=== PATIENT | female | born 1965 | race Caucasian/White ===

== ENCOUNTER 2018-11-20 00:04 | Observation (INO) | payer OTHER, SELFPAY ==
[2018-11-19 23:49] VITALS: PULSE 96; BMI 38.6
[2018-11-20] VITALS (9 sets, daily range): BP systolic 119–151; BP diastolic 66–83; PULSE 63–82; RESP 16–19; TEMP 36.6–37.1; O2SAT 94–97
--- NOTE | 2018-11-20 00:04 | EKG12_ITS ---
Test Reason : PREOP Blood Pressure : / mmHG Vent. Rate : 075 BPM Atrial Rate : 075 BPM P-R Int : 154 ms QRS Dur : 090 ms QT Int : 406 ms P-R-T Axes : 064 027 030 degrees QTc Int : 453 ms Normal sinus rhythm Normal ECG Confirmed by KAROLYN EDGAR, TERRI ([id number]), supervising editor trailer RAVIN SAUER ([id number]) on 11/24/2018 11:00:40 AM Referred By: Clinton Vieira Confirmed By:TERRI PARR MD
--- NOTE | 2018-11-20 00:04 | PCM.HP.STD ---
Problem List (1) Chest pain Status: Acute History of Present Illness Date of Admission: 11/19/18 Chief Complaint: chest pain Patient was seen before midnight of 11/20/2018. She was seen at about 2350 on 11/19/2018. The patient is a 52 year old F with a significant history of hyperlipidemia; tobacco abuse; obesity who was transferred from [place] emergency department. Patient presented to [facility] because of persistent nonradiating episodic substernal chest pain that she described as a tightness and heaviness. Her chest pain started when she was gardening. Chest pain relieved with rest. Upon resuming gardening her chest pain returned only to subside after rest. Associated with her symptoms is near syncope; palpitations shortness of breath and diaphoresis Her chest pain occurred few hours before presentation to [place] emergency department. At [place] emergency department patient still have some heaviness which resolved with nitroglycerin. However patient reported lightheadedness; near syncope as well as hypotension after receiving nitroglycerin. Troponin x2 at [facility] was unremarkable. Chest x-ray and EKG was unremarkable. Because stress test is not routinely done at [facility] patient was transferred to our hospital. Past Medical History Medical History: Medical History (Last Updated 11/20/18 @ 06:22 by Clinton Vieira MD) Hyperlipidemia E78.5 Allergies acetaminophen [From Vicodin] Allergy (Verified 11/19/18 23:59) Hives hydrocodone [From Vicodin] Allergy (Verified 11/19/18 23:59) Hives Penicillins Allergy (Verified 11/19/18 23:59) Hives Surgical History: - - Ovarian cyst removal; tubal ligation Lives: With Family Smoking Status: Current every day smoker Tobacco Use: Cigarettes Alcohol: None - *Family History Maternal History Items: Heart Disease - Mother from heart failure at age 83 Paternal History Items: Heart Disease - Patient's brother had a heart attack at age 58; and her father had MD with CABG when he was in his 70s. Review of Systems Constitutional: Denies: Chills, Fever, Weight Change HEENT: Denies: Head Aches, Sinus Congestion, Sinus Drainage Cardiovascular: Reports: Chest Pain, Chest Tightness, Heaviness, Light Headedness, Palpitations Respiratory: Reports: Shortness of Breath. Denies: Cough, Shortness of breath at rest, Sputum production Gastrointestinal: Denies: Abdominal Pain, Nausea, Vomiting Genitourinary: Denies: Dysuria Musculoskeletal: Denies: Joint Pain, Joint Tenderness Skin: Denies: Rash, Wounds Neurological: Denies: Numbness, Tingling, Focal weakness Psychiatric: Denies: Anxiety, Depression, Homicidal Ideations, Suicidal Ideations Hematologic/ Lymphatic: Denies: Easy Bruising, Easy Bleeding VTE Information - Inpt Only VTE Present on Admission: No VTE Mechan Device Prophylaxis: SCD's VTE Pharm Prophylaxis ordered?: No Patient Problems: Active and Suspected Problems Chest pain (Acute) - Physical Exam General: Alert, Oriented x3, Cooperative HEENT: Atraumatic, PERRLA, EOMI, Normocephalic, - - Even the positions on bilateral eyelids Neck: Supple, No JVD, Negative Carotid Bruits Lungs: Clear to auscultation, Normal air movement Cardiovascular: Regular rate, No murmurs Abdomen: Bowel Sounds Present, Soft, Non Tender Extremities: No edema, Capillary Refill Less than 3 Seconds Skin: No rashes, No breakdown Musculoskeletal: No Tenderness to Palpation of Joints or Extremities Neurological: Cranial nerves II-XII grossly intact Psych/Mental Status: Normal Affect, Appropriate Vital Signs Pulse 96 11/19/18 23:49 Weight: 111.8 kg Body Mass Index (BMI) 38.6 Assessment/Plan All Active Problems Chest pain (Acute) The patient is a 52 year old F with a significant history of hyperlipidemia ; tobacco abuse; obesity and a family history of chest pain presenting with chest pain Chest pain Place on a monitored bed at PCU CXR showed no acute cardiopulmonary process. EKG independently reviewed confirms sinus rhythm with no T-wave abnormality. Received Aspirin 325 mg at [facility]. ASA 81 mg p.o. daily ordered SL NTG 0.4 mg prn as needed for chest pain Morphine as needed for pain We will check lipid panel. Since troponin x2 at [facility] ED was unremarkable will get only one more troponin level. Stat EKG as needed for chest pain Nuclear Stress test in the AM if the cardiac enzymes are negative. Treadmill stress test not ordered because of near syncopal episode. Tobacco abuse Counseled Declined nicotine patch DVT prophylaxis Subcutaneous Lovenox Code Visit OBSV E&M: 33147 Initial observation care L2
--- NOTE | 2018-11-20 06:49 | EKG12_ITS ---
Test Reason : CP ADMISSION Blood Pressure : / mmHG Vent. Rate : 076 BPM Atrial Rate : 076 BPM P-R Int : 160 ms QRS Dur : 086 ms QT Int : 390 ms P-R-T Axes : 056 013 029 degrees QTc Int : 438 ms Normal sinus rhythm Normal ECG Confirmed by KAROLYN EDGAR, TERRI ([id number]), movie editor RAVIN SAUER ([id number]) on 11/24/2018 11:01:27 AM Referred By: Clinton Vieira Confirmed By:TERRI PARR MD
[2018-11-20] MEDS: Aspirin E.C. 81 MG Tablet PO (11:59)
[2018-11-20] MEDS: Acetaminophen 325 MG Tablet 650 MG PO (11:59)
--- NOTE | 2018-11-20 12:11 | STRESSREP ---
Stress Test Report Pharmacologic myocardial perfusion stress test. 52-year-old lady with a history of chest pain. Resting EKG demonstrates normal sinus rhythm with a rate of 77 bpm normal intervals are noted 0.4 mg of regadenoson was infused per usual protocol followed by rapid intravenous saline flush injection continuous EKG monitoring was performed. The patient maintained sinus rhythm throughout the recording. At rest there were no ST or T wave changes noted suggest abnormal flow reserve. The resting blood pressures on the 32/70 with a final blood pressure 140/76. No clinical angina was noted. Myocardial perfusion protocol. 15.0 mCi of technetium 99m sestamibi was injected at rest. 0.4 mg of regadenoson was infused per usual protocol peak infusion 45.0 mCi of technetium 99m sestamibi was injected stress images were obtained stress and rest images were reconstructed and compared in the short axis vertical long horizontal long axis. Gated images were also obtained Perfusion SPECT analysis: Review of the stress images demonstrate normal uptake of tracer noted in all areas of the myocardium. The resting images similar demonstrate normal uptake of tracer noted in all areas of the myocardium. No areas of reversibility are noted suggest ischemia. Gated SPECT analysis: The gated ejection fraction is noted to be 54%. Conclusion: Normal pharmacologic myocardial perfusion stress test. Preserved ejection fraction.
--- NOTE | 2018-11-20 12:23 | DCINST_ITS ---
- Discharge Diagnoses Current Active Problems: Current Active and Chronic Problems (Last Updated 11/20/18 @ 06:22 by Clinton Vieira MD) Chest pain (Acute) You will use the following diet at home:: Regular Your food should be the consistency of: Regular Discharge Activity: Return to Normal Activity Weight Bearing Status: Full weight bearing Call your doctor if you observe: Fever of 101 or Higher, Shortness of breath, Dizziness, Fainting spells, Chest pain, Increased palpitations (irregular heartbeat), Uncontrolled pain Allergies/Adverse Reactions: Allergies acetaminophen [From Vicodin] Allergy (Verified 11/19/18 23:59) Hives hydrocodone [From Vicodin] Allergy (Verified 11/19/18 23:59) Hives Penicillins Allergy (Verified 11/19/18 23:59) Hives Primary Care Physician: Afia Vogt NP-C [Primary Care Provider] - Please follow up with your Primary Care Physician in: 2-3 weeks. Test Results: Test results from this visit will be discussed in further detail at your follow- up appointment, if applicable.
--- NOTE | 2018-11-20 12:32 | DS.PCM_ITS ---
Discharge Date and Diagnosis - Problem List Patient Problems: Active and Suspected Problems (Last Updated 11/20/18 @ 06:22 by Clinton Vieira MD) Chest pain (Acute) Date of Admission: 11/19/18 Date of Discharge: 11/20/18 - Primary Discharge Diagnosis Active and Suspected Problems (Last Updated 11/20/18 @ 06:22 by Clinton Vieira MD) Chest pain, ACS ruled out (Acute) Hospital Course and Treatment Imaging Results: 11/20/18 05:55 Nuclear Stress Test - Chemical [NM] AM (NON MEDS) Perfusion SPECT analysis: Review of the stress images demonstrate normal uptake of tracer noted in all areas of the myocardium. The resting images similar demonstrate normal uptake of tracer noted in all areas of the myocardium. No areas of reversibility are noted suggest ischemia. Gated SPECT analysis: The gated ejection fraction is noted to be 54%. Conclusion: Normal pharmacologic myocardial perfusion stress test. Preserved ejection fraction. Operations: None Procedures: EKG, Stress test Summary of Care Provided: Patient seen and examined on the day of discharge and appeared to be stable to be discharged home. She denies any more chest pain. Her vital signs are stable. The patient is a 52 year old F admitted directly to PCU from outside facility for chest pain for evaluation. Work-up that was done at the other facility reviewed and was unremarkable except for mild leukocytosis which is probably reactive. Her EKG revealed normal sinus rhythm without evidence of acute ischemic changes. Troponin is negative x3. Chest x-ray that was done at the other facility reviewed and was unremarkable. Her vital signs have been stable. Today, patient underwent nuclear stress test that revealed no evidence of stress-induced myocardial ischemia with ejection fraction 54%. ACS ruled out. Patient's blood pressure and heart rate remained stable throughout the hospital stay. Patient discharged home in a stable medical condition, no medication prescribed upon discharge, recommended follow-up with PCP in 2 to 3 weeks. Patient Problems: Active and Suspected Problems (Last Updated 11/20/18 @ 06:22 by Clinton Vieira MD) Chest pain (Acute) - Physical Exam General: Alert, Oriented x3, Cooperative, No apparent distress HEENT: Atraumatic, PERRLA, EOMI, Normocephalic Oral: Moist Mucosa, No Gingival or Mucosal Lesions/ Ulcerations Neck: Supple, No JVD, Negative Carotid Bruits Lungs: Clear to auscultation, Normal air movement, No rhonchi, No wheeze, No rales Cardiovascular: Regular rate, Regular Rhythm, Normal S1, Normal S2, PMI Normal Abdomen: Bowel Sounds Present, Soft, Non Tender, Non-Distended, No Hepato- splenomegaly, Obese Extremities: No clubbing, No cyanosis, No edema Skin: No rashes, No breakdown Lymphatic: No Cervical, Supraclavicular, or Inguinal Adenopathy Neurological: Cranial nerves II-XII grossly intact, Neuro grossly intact Psych/Mental Status: Normal Affect, Appropriate Vital Signs Temp Pulse Resp BP Pulse Ox 97.9 F 67 16 135/78 H 96 11/20/18 08:29 11/20/18 08:29 11/20/18 08:29 11/20/18 08:29 11/20/18 08:29 Oxygen Delivery Method Room Air Weight: 246 lb 7.629 oz Body Mass Index (BMI) 38.6 Intake and Output for Last 24 Hours 11/18/18 11/19/18 11/20/18 23:59 23:59 23:59 Intake Total 120 / 120 Balance 120 / 120 Laboratory Tests Past 24 Hrs 11/20/18 04:02 Troponin I < 0.015 Discharge Activity: Return to Normal Activity Weight Bearing Status: Full weight bearing Call your doctor if you observe: Fever of 101 or Higher, Shortness of breath, Dizziness, Fainting spells, Chest pain, Increased palpitations (irregular heartbeat), Uncontrolled pain Primary Care Physician: Afia Vogt NP-C [Primary Care Provider] - Please follow up with your Primary Care Physician in: 2-3 weeks. Disposition: Home Minutes spent on discharge:: 23 Patient Condition:: Stable Medical Necessity - Tobacco Use Smoking Status: Current every day smoker Tobacco Use: Cigarettes Meaningful Use Info Meaningful Use Diagnoses (Choose all that apply): None applicable Code Visit OBSV E&M: 31879 Observation care discharge
--- NOTE | 2018-11-20 13:30 | NURSING ---
Addendum entered by Flaco Green 11/20/18 13:51: Patient states she just had a cup of coffeee when vitals obtained. Denies complaints. Original Note: Discharge teaching completed. Patient instructed to follow up with PCP to determine if she should continue ASA therapy. Patient voiced understanding of same. Questions answered.
== END 2018-11-20 12:24 | disposition home or self-care (01) ==
PROVIDERS: Admitting Provider Hospitalist; Family Provider Nurse Practitioner Family; PCP Nurse Practitioner Family; Referring Provider Hospitalist; Visit Provider Hospitalist
DX: R07.89 Other chest pain (principal); E78.5 Hyperlipidemia, unspecified; E66.9 Obesity, unspecified; Z68.38 Body mass index [BMI] 38.0-38.9, adult; Z71.3 Dietary counseling and surveillance; R55 Syncope and collapse; R06.02 Shortness of breath; F17.210 Nicotine dependence, cigarettes, uncomplicated
CPT/HCPCS: 36415; 78452; 84484; 93005; 93017; 99218; 99406; A9500; A4216; G0378; J2785

== ENCOUNTER → 2019-05-10 | Outpatient (CLI) | payer OTHER, SELFPAY ==
[2018-11-19 23:49] VITALS: BMI 38.6
[2019-05-10 17:55] LABS: AST(SGOT) 18 U/L (15-37); Alanine Aminotransfer ALT/SGPT 27 U/L (13-56); Albumin, Serum 3.7 g/dL (3.2-5.0); Alkaline Phosphatase 87 U/L (45-117); Anion Gap 5 (5-15); BUN 13 mg/dL (7-18); BUN/Creat Ratio 17.7 RATIO (10-20); Calcium,Total 9.1 mg/dL (8.5-10.1); Chloride 108 mmol/L (98-107); Cholesterol 197 mg/dL (200); Creatinine, Serum 0.74 mg/dL (0.55-1.02); EST Glomerular Filtration Rate 87 mL/min (>60); Est Glom Filt Rate - Afr Amer 105 mL/min (>60); Globulin 3.7 g/dL (2.2-4.2); Glucose 96 mg/dL (74-106); High Density Lipoprotein 33 mg/dL; Potassium 4.2 mmol/L (3.5-5.1); Protein, Total 7.4 g/dL (6.4-8.2); Sodium Level 140 mmol/L (136-145); Triglycerides 201 mg/dL; Very Low Density Lipoprotein 40 mg/dL (5-40)
== END | disposition home or self-care (01) ==
PROVIDERS: PCP Family Medicine; Referring Provider Family Medicine; Visit Provider Family Medicine
DX: E78.5 Hyperlipidemia, unspecified (principal); R73.03 Prediabetes
CPT/HCPCS: 36415; 80053; 80061

== ENCOUNTER → 2019-11-14 | Outpatient (CLI) | payer OTHER, SELFPAY ==
[2018-11-19 23:49] VITALS: BMI 38.6
[2019-11-14 18:28] LABS: ALB/GLOB Ratio 0.9 RATIO (0.9-2.4); AST(SGOT) 14 U/L (15-37); Alanine Aminotransfer ALT/SGPT 25 U/L (13-56); Albumin, Serum 3.6 g/dL (3.2-5.0); Alkaline Phosphatase 74 U/L (45-117); Anion Gap 8 (5-15); BUN 11 mg/dL (7-18); BUN/Creat Ratio 13.4 RATIO (10-20); CRP 3.47 mg/L (0.0-3.0); Calcium,Total 8.6 mg/dL (8.5-10.1); Chloride 105 mmol/L (98-107); Cholesterol 234 mg/dL (200); Creatinine, Serum 0.82 mg/dL (0.55-1.02); EST Glomerular Filtration Rate 76 mL/min (>60); Est Glom Filt Rate - Afr Amer 93 mL/min (>60); Globulin 3.9 g/dL (2.2-4.2); Glucose 111 mg/dL (74-106); High Density Lipoprotein 32 mg/dL; Potassium 4.3 mmol/L (3.5-5.1); Protein, Total 7.5 g/dL (6.4-8.2); Rheumatoid Factor < 10.0 IU/mL (<15); Sodium Level 139 mmol/L (136-145); Thyroid Stim Hormone (TSH) 2.07 uIU/mL (0.358-3.74); Triglycerides 283 mg/dL; Very Low Density Lipoprotein 57 mg/dL (5-40)
[2019-11-16 19:15] LABS: ANTINUCLEAR ANTIBODIES DIRECT Negative (Negative)
== END | disposition home or self-care (01) ==
LOC: MFPLAB 14:02
PROVIDERS: PCP Family Medicine; Referring Provider Family Medicine; Visit Provider Family Medicine
DX: E78.5 Hyperlipidemia, unspecified (principal); M25.50 Pain in unspecified joint; L56.8 Other specified acute skin changes due to ultraviolet radiation
CPT/HCPCS: 36415; 80053; 80061; 84443; 86038; 86140; 86431

== ENCOUNTER → 2019-12-27 | Outpatient (CLI) | payer OTHER, SELFPAY ==
[2018-11-19 23:49] VITALS: BMI 38.6
[2019-12-27 16:18] LABS: Bacteria 0 SEEN /hpf (None Seen); Red Blood Cells-Urine 0 SEEN /hpf (0-5); White Blood Cells 0 SEEN /hpf (0-5)
[2019-12-27 18:30] LABS: Color, Urine Amber (Yellow); Glucose, Dipstick Normal (Normal); Ketone-Dipstick 5 mg/dl (Negative); Leukocyte Esterase-Dipstick 25 /ul (Negative); Nitrite-Dipstick Negative (Negative); Occult Blood-Urine 50 /ul (Negative); Protein-Dipstick 30 mg/dl (Negative); Urine Bilirubin Dipstick Negative (Negative); Urine Clarity Clear (Clear); Urine Urobilinogen 4 mg/dl (Normal)
[2019-12-27 18:56] LABS: Calcium Oxalate Crystals Ur 2+ /hpf (<or=2+); Mucous, Urine 1+ /hpf (<or=2+); Squamous Epithelial Cells - UA 0-5 SEEN /hpf (5-10)
== END | disposition home or self-care (01) ==
LOC: LABSPEC 16:15
PROVIDERS: PCP Family Medicine; Referring Provider Family Medicine; Visit Provider Family Medicine
DX: R35.0 Frequency of micturition (principal)
CPT/HCPCS: 81001; 87086; 87088

== ENCOUNTER 2019-12-29 11:55 | Emergency (ER) | payer OTHER, SELFPAY ==
[2018-11-19 23:49] VITALS: BMI 38.6
[2019-12-29 11:56] VITALS: BP 157/117; PULSE 96; RESP 17; TEMP 35.5; O2SAT 98; BMI 36.5
--- NOTE | 2019-12-29 12:08 | ED.DCSUM_ITS ---
History of Present Illness Chief Complaint: Flank Pain Informant: Patient Onset: Today Current Severity: Severe Maximum Severity: Severe Narrative: Patient woke this morning at 8 AM with severe left flank pain. She does report a history of kidney stones, last being 4 or 5 years ago. She did have vomiting secondary to pain. She has not yet taken anything for pain. She has never required surgery for her kidney stones. - Past Medical History (1) Kidney stones Status: Chronic (2) High cholesterol Status: Chronic Past Medical History - Allergies and Home Meds Allergies/Adverse Reactions: Allergies acetaminophen [From Vicodin] Allergy (Verified 12/29/19 11:55) Hives hydrocodone [From Vicodin] Allergy (Verified 12/29/19 11:55) Hives Penicillins Allergy (Verified 12/29/19 11:55) Hives Primary Care Physician: Cortez Walters MD [Primary Care Provider] - Prior records reviewed: Yes Surgical History: - - Ovarian cyst removal; tubal ligation Smoking Status: Current every day smoker - Family History Maternal Family History: Reports: Heart Disease - Mother from heart failure at age 83 Paternal Family History: Reports: Heart Disease - Patient's brother had a heart attack at age 58; and her father had [place] with CABG when he was in his 70s. Review of Systems General: Denies: Chills, Fever Eyes: Denies: Visual changes - bilaterally ENT: Denies: Bilateral ear pain Cardiovascular: Denies: Chest pain Respiratory: Denies: Dyspnea, Cough Gastrointestinal: Reports: Abdominal pain, Nausea, Vomiting. Denies: Diarrhea Musculoskeletal: Reports: Back pain - Left flank Skin: Denies: Rash Neurological: Denies: Headache Hematologic: Denies: Easy bruising, Easy bleeding Allergy: Denies: Uticaria Physical Exam Vital Signs/Narrative: Vital Signs Temp Pulse Resp BP Pulse Ox 12/29/19 11:56 95.9 F L 96 17 157/117 H 98 Inital Vital Signs reviewed: Yes General: Well nourished, Well developed, - - Patient pacing at bedside, uncomfortable. Head: Normocephalic ENT: Moist mucous membranes Neck: Supple Cardiovascular: Regular rate, Regular rhythm Respiratory: No distress, CTA bilaterally Abdomen: Soft, Nontender Back: CVA tenderness Skin: Normal color Neurological: Alert, Oriented x3 Psychological: - - Anxious Diagnostic/Tx/Re-eval Impressions Abdomen/Pelvis CT 12/29/19 12:45 IMPRESSION: 3 mm calculus at the left uterovesical junction causing mild degree of left hydronephrosis and hydroureter. Electronically Signed: Galen Kelly, at 13:50 EDT , Service support , 12/29/19 12:45 Abdomen/Pelvis without Cont [CT] Stat Laboratory Results 12/29/19 12/29/19 12/29/19 12:25 12:25 12:44 WBC 10.5 RBC 4.36 Hgb 13.2 Hct 39.1 MCV 89.7 MCH 30.3 MCHC 33.8 RDW Std Deviation 38.6 RDW Coeff of Katty 11.9 Plt Count 247 MPV 9.5 Immature Gran % (Auto) 0.500 Neut % (Auto) 83.7 H Lymph % (Auto) 9.8 L Storey % (Auto) 5.3 Eos % (Auto) 0.4 Baso % (Auto) 0.3 Absolute Neuts (auto) 8.8 H Absolute Lymphs (auto) 1.03 Nucleated RBC % 0 Sodium 138 Potassium 4.1 Chloride 106 Carbon Dioxide 25.0 Anion Gap 7 BUN 13 Creatinine 1.04 H Estim Creat Clear Calc 60.93 Est GFR (MDRD) Af Amer 71 Est GFR (MDRD) Non-Af 58 L BUN/Creatinine Ratio 12.5 Glucose 196 H Calcium 8.9 Urine Color Yellow Urine Clarity Cloudy Urine pH 5.0 Ur Specific [place] 1.030 Urine Protein 100 H Urine Glucose (UA) Normal Urine Ketones 5 H Urine Occult Blood 150 H Urine Nitrite Negative Urine Bilirubin Negative Urine Urobilinogen Normal Ur Leukocyte Esterase 25 H Urine RBC 0-5 SEEN Urine WBC 0-5 SEEN Ur Squamous Epith Cells 5-10 SEEN Calcium Oxalate Crystal 1+ Urine Bacteria 1+ Urine Mucus RARE - Medical Decision Making Patient was given morphine, Zofran, Toradol, and IV fluids. On repeat evaluation she is lying in bed in much more comfortable. Test results are discussed with her. She will be written for Percocet, Zofran, Toradol, and Flomax. She is referred to Dr. Walker, on-call for urology if not improving. ED Disposition - Plan for ED Patient: Disposition: Home or Assisted Living Diagnosis: Kidney stone Instructions: ED Renal Stone w Colic Prescriptions: Tamsulosin HCl [Flomax] 0.4 mg PO DAILY #7 cap Transmission Status: Pending to [facility] Oxycodone HCl/Acetaminophen [Percocet 5/325] 1 tablet PO Q6H PRN PRN 3 Days #12 tablet PRN Reason: Pain Transmission Status: Sent to [facility] Ketorolac [Toradol] 10 mg PO Q6H PRN #14 tab PRN Reason: Pain Score 4-10 Transmission Status: Pending to [facility] Ondansetron [Zofran Odt] 4 mg PO Q8H PRN PRN #10 tab PRN Reason: Nausea Transmission Status: Pending to [facility] Referrals: Kevan Walker MD [STAFF PHYSICIAN] - 3-5 Days if not improving
[2019-12-29] MEDS: Ketorolac 30 MG/ML Syringe IV (12:26)
[2019-12-29] MEDS: Ondansetron 4 MG/2 ML Vial IV (12:26)
[2019-12-29] MEDS: Morphine 4 MG/ML Syringe IV (12:26)
[2019-12-29] MEDS: 0.9% Normal Saline 1,000 ML 250 ML IV (12:27)
[2019-12-29 12:33] LABS: Absolute Lymphocyte Count 1.03 X10^3/uL (0.83-4.51); Absolute Neutrophil Count 8.8 X10^3/uL (2.0-7.7); Basophil# 0.03 X10^3/uL; Basophil% 0.3 % (0-1); Eosinophil# 0.04 X10^3/uL; Eosinophils% 0.4 % (0-5); Hematocrit 39.1 % (37-47); Hemoglobin 13.2 g/dL (12.0-15.0); Lymphocyte # 1.03 X10^3/ul (4.0); Lymphocyte % 9.8 % (19-41); Mean Corp Hgb Conc 33.8 g/dL (32-36); Mean Corpuscular Hgb 30.3 pg (27.0-32.0); Mean Corpuscular Volume 89.7 fL (81-99); Mean Platelet Vol. 9.5 fl (6.2-12.0); Monocyte# 0.55 X10^3/uL; Monocyte% 5.3 % (0-10); NRBC Flagged by Analyzer 0 % (0-5); Neutrophil # 8.76 X10^3/uL (2.7-7.7); Neutrophil % 83.7 % (47-70); Platelet Count 247 K/mm3 (150-450); RBC Distribution Width CV 11.9 % (11.6-14.6); RBC Distribution Width SD 38.6 fl (35.1-43.9); Red Blood Count 4.36 M/mm3 (4.2-5.4); White Blood Count 10.5 K/mm3 (4.4-11.0)
--- NOTE | 2019-12-29 12:45 | CT_ITS ---
STUDY: CT ABDOMEN AND PELVIS WITHOUT CONTRAST REASON FOR EXAM: Female, 54 years old. LT FLANK PAIN TODAY/HX OF [place] RADIATION DOSAGE (If Supplied By Facility): CTDIvol = ( 14.80 ) mGy, DLP = ( 825.95 ) mGycm TECHNIQUE: Transaxial images were obtained from the dome of the diaphragm to the symphysis pubis without oral contrast, and without intravenous contrast. Sagittal and coronal images were reconstructed. Individualized dose optimization techniques were used for this CT. COMPARISON: None. FINDINGS: Mild degree of increased markings at the lung bases slightly worse on the left side. This most likely represents atelectasis. Coronary artery calcification. Normal liver. There are surgical clips in the gallbladder fossa consistent with a prior cholecystectomy. Normal spleen. Normal pancreas. Normal bilateral adrenal glands. Normal right kidney. Left perinephric stranding. Mild degree of left hydronephrosis and hydroureter due to a 3 mm calculus at the left ureterovesical junction. Normal visualized stomach. Normal small intestine. Normal colon. The appendix is visualized and appears normal. There is scattered atherosclerotic calcification of the abdominal aorta, without a demonstrated aneurysm. Normal inferior vena cava. There is borderline retroperitoneal lymphadenopathy with enlarged nodes no greater than 10mm in the short axis diameter. Normal urinary bladder. Bilateral tubal ligation. Normal abdominal wall. There are mild degenerative changes of the visualized lumbar spine. There is a 6.7 mm focal sclerosis along the anterior superior endplate of the L5 vertebrae. CT/Abdomen/Pelvis without Cont IMPRESSION: 3 mm calculus at the left uterovesical junction causing mild degree of left hydronephrosis and hydroureter. Electronically Signed: Galen Kelly, at 13:50 EDT , Service support ,
[2019-12-29 12:48] LABS: Anion Gap 7 (5-15); BUN 13 mg/dL (7-18); BUN/Creat Ratio 12.5 RATIO (10-20); Calcium,Total 8.9 mg/dL (8.5-10.1); Chloride 106 mmol/L (98-107); Creatinine, Serum 1.04 mg/dL (0.55-1.02); EST Glomerular Filtration Rate 58 mL/min (>60); Est Glom Filt Rate - Afr Amer 71 mL/min (>60); Estimated Creatinine Clearance 60.93 ml/min; Glucose 196 mg/dL (74-106); Potassium 4.1 mmol/L (3.5-5.1); Sodium Level 138 mmol/L (136-145)
[2019-12-29 13:01] LABS: Color, Urine Yellow (Yellow); Glucose, Dipstick Normal (Normal); Ketone-Dipstick 5 mg/dl (Negative); Leukocyte Esterase-Dipstick 25 /ul (Negative); Nitrite-Dipstick Negative (Negative); Occult Blood-Urine 150 /ul (Negative); Protein-Dipstick 100 mg/dl (Negative); Urine Bilirubin Dipstick Negative (Negative); Urine Clarity Cloudy (Clear); Urine Urobilinogen Normal (Normal)
[2019-12-29 13:06] LABS: Bacteria 1+ /hpf (None Seen); Mucous, Urine RARE /hpf (<or=2+); Red Blood Cells-Urine 0-5 SEEN /hpf (0-5); Squamous Epithelial Cells - UA 5-10 SEEN /hpf (5-10); White Blood Cells 0-5 SEEN /hpf (0-5)
[2019-12-29 13:07] LABS: Calcium Oxalate Crystals Ur 1+ /hpf (<or=2+)
[2019-12-29 14:27] VITALS: BP 150/68; PULSE 97; RESP 18; O2SAT 98
== END 2019-12-29 14:32 | disposition home or self-care (01) ==
PROVIDERS: Emergency Provider Emergency Medicine; PCP Family Medicine
DX: N13.2 Hydronephrosis with renal and ureteral calculous obstruction (principal); F17.200 Nicotine dependence, unspecified, uncomplicated; Z87.442 Personal history of urinary calculi
CPT/HCPCS: 74176; 80048; 81001; 85025; 96361; 96374; 96375; 99282; J7030; A4216; J2405

== ENCOUNTER 2020-06-15 12:01 | Day surgery (SDC) | payer OTHER, SELFPAY ==
[2020-05-25 13:48] VITALS: BMI 40.1
--- NOTE | 2020-06-15 07:15 | HP_ITS ---
Intake Vital Signs 05/25/20 Height 5 ft 7 in 05/25/20 Weight: 256 lb 5 oz 05/25/20 BMI 40.1 05/25/20 BP 154/95 H 05/25/20 Blood Pressure Location Rt brachial 05/25/20 Position Sitting 05/25/20 Respiration 16 05/25/20 Pulse 91 05/25/20 Pulse Source Monitor 05/25/20 Pulse Oximetry (%) 98 05/25/20 Oxygen Delivery Method room air Intake Visit Reasons: LIPOMA RIGHT THORACIC PARASPINAL Chief Complaint: lipoma left back Rod And Tube Straightener Required: No Is patient in pain?: No (tender to touch) Allergies acetaminophen [From Vicodin] Allergy (Verified 05/25/20 13:51) Hives hydrocodone [From Vicodin] Allergy (Verified 05/25/20 13:51) Hives Penicillins Allergy (Verified 05/25/20 13:51) Hives Medications Atorvastatin Calcium 10 mg PO DAILY 12/29/19 [History Confirmed 05/25/20] lisinopril 5 mg tablet 5 mg PO DAILY tablet 05/25/20 [History Confirmed 05/25/20] [facility] Medical History (Updated 05/25/20 @ 13:39 by Maribel Aranda) Hypertension (Chronic) Hyperlipidemia (Acute) Surgical History (Updated 05/25/20 @ 13:39 by Maribel Aranda) History of esophagogastroduodenoscopy (EGD) (Acute) Hx of cholecystectomy (Acute) Family History (Updated 05/25/20 @ 13:47 by Maribel Aranda) Mother Diabetes Hypertension Father Diabetes Heart disease Hypertension Social History (Updated 05/25/20 @ 14:[address] Evette Burt MD) Smoking Status: Current every day smoker alcohol intake: never substance use type: does not use caffeine: Yes what type of physical activity do you participate in: none frequency: does not exercise HPI HPI HPI: NEPTALI HARMAN, is a 54 F who presents to the office today for HPI HPI Surgical H&P: Yes HPI: NEPTALI HARMAN, is a 54 F who presents to the office today for left back subcutaneous mass likely lipoma. Patient states she has had this since 2006 when she fell on the ice. Patient states is been more bothersome to her lately as his right knee area that her bra would sit. Patient states she does think it is gotten little larger over time as well. Patient is interested in having this excised. ROS General General: No weight change or fatigue Skin Skin: No rash or changing moles Gastro Gastrointestinal: No abdominal pain, No nausea or vomiting, No diarrhea, No constipation, No blood in stool, No acid reflux, No hemorrhoids, No ulcers, No gallbladder problem, No black,tarry stools Exam Const General: cooperative, comfortable, no acute distress, well developed Resp Effort & Inspection: normal respiratory effort Cardio Rate: regular rate GI Palpation: soft Skin Other: Left medial mid back 9 x 12 cm subcutaneous mass, soft, mobile, no changes to overlying skin, nontender. Likely consistent with lipoma Assessment & Plan Problems 1. Lipoma of back D17.1 Plan Plan on excision of left mid back lipoma under MAC anesthesia. Discussed procedure including but not limited to risk of bleeding, infection, and anesthesia. Patient no further question this time. Evette Burt M.D. Pager: [phone] [facility] [address] [place] [address], [facility], [address] [place] [address] Office: [phone] Plan Detail Follow Up We will schedule excision of lipoma Coding Level of Care Code Off vis,new,level 3 Diagnoses Lipoma of back D17.1 COVID (Procedure Consent) Procedure Criteria Procedure Criteria: Yes Elective The surgeon/proceduralist and patient have discussed in detail the risk of exposure to and/or potential harm posed by the COVID-19 virus with having a surgery/procedure at this time versus the risk of? delaying the surgery/procedure. It is not possible to know either the risk of delaying the surgery or procedure or chance of getting an infection with perfect accuracy, but a joint decision was made between the patient and the surgeon/proceduralist ?to proceed at this time with the scheduled surgery/procedure as indicated on the consent form. I have re-examined the patient. There are no clinical changes since date of exam.
[2020-06-15 12:20] VITALS: BP 119/71; PULSE 90; RESP 16; TEMP 36.6; O2SAT 98; BMI 39.7
[2020-06-15] MEDS: Lactated Ringers 1,000 ML 100 ML IV (12:37)
[2020-06-15] MEDS: Lidocaine 1% /Epi 1:100 (20ml) 20 ML Vial ×2 (13:26→14:00)
--- NOTE | 2020-06-15 13:30 | LIP_PTH ---
PATIENT: NEPTALI HARMAN LOC: [facility] [place] U#:[id number] AGE/SX: 54/F ROOM: RE06/15/[address]: Dr. Evette Burt MD : 1965 BED: DIS: 06/15/2020 SPEC #: [id number] RECD: 06/15/20 15:22 STATUS: JONATHON REWilliam #: [id number] DALJIT: 06/15/20 13:[address]: Evette Burt DEPT: SURGICAL PATHOLOGY RECD BY: Caryl Flores ENTERED: 06/18/20 07:11 SP TYPE: LIPOMA OTHR DR: Dr. Cortez Walters MD Tissues: Soft tissues, NOS Procedures: Surgery Specimen Level III HEADER OPERATION: Excision lipoma back PRE-OP DIAGNOSIS: Lipoma of back TISSUE SUBMITTED: Lipoma left back MICROSCOPIC DIAGNOSIS Soft tissue mass of back, excision: Mature adipose tissue consistent with lipoma. AM:alejandra 06/19/2020 MICROSCOPIC DESCRIPTION Slides are reviewed. GROSS DESCRIPTION Received in fixative is one container labeled with the patient's name and designated lipoma left back. The specimen consists of multiple irregular fragments of garcía-yellow fatty tissue ranging in size from 1.5 to 10 cm. Serial sections reveal yellow cut surfaces without areas of hemorrhage or myxoid change. Property Appraiser sections are submitted in one cassette. / AM:alejandra 06/18/20 TC:1 CPT: 48595
--- NOTE | 2020-06-15 14:08 | PCM.OPRPT ---
Report of Operation Date of Procedure: 06/15/20 Pre-Operative Diagnosis: Left back lipoma Post-Operative Diagnosis: Same Surgery/Procedure Performed:: Excision left back lipoma mobile application developer: Cesario Cuenca Anesthesiologist: Brayden Israel Special Medications: Clindamycin 900 mg IV x1 Specimen's removed: Lipoma left back Estimated Blood Loss (mL): <10 cc Fluids Replaced: 800 cc Description of Procedure: Description procedure: Patient brought to the operating room a timeout was completed verifying correct patient, procedure, site, positioning, special equipment prior beginning procedure. Patient was placed in the right lateral decubitus position with appropriate padding. MAC anesthesia was induced. Patient's back was prepped draped in usual sterile fashion with chlorhexidine. Local anesthesia of 30 cc of 1% lidocaine with epinephrine was used. An incision was planned over the lipoma and along the [place] lines. Incision was made with 15 blade scalpel. Deepened with electrocautery until the lipoma was seen. The lipoma was densely adherent circumferentially these were carefully taken down with electrocautery. Lipoma was taken two specimens one was 9 cm x 7.5 cm x 2 cm the other specimen was 7 cm x 4 cm x 1.25 cm. Electrocautery was used for hemostasis. The wound was irrigated. The wound was closed with subdermal sutures of 3-0 Vicryl interrupted, skin was closed with running suture of 4-0 Monocryl with Steri-Strips. Tegaderm and OpSite were placed. Patient tolerated procedure well. Patient was taken to the postanesthesia care unit in stable condition. - Complications none
--- NOTE | 2020-06-15 14:14 | DCINST_ITS ---
Discharge Diet: Light diet - advance as tolerated Discharge Activity: May not drive while taking narcotic pain medications. Lifting Restrictions: no lifting > 20 lbs w left arm x 1 week Call your doctor if your incision/area has: Continuous Slow Oozing, Sudden Increased Bleeding, Increased Pain/ Swelling, Increased Redness, Foul Smelling Discharge, Swelling at the incision site Call your doctor if you observe: Fever of 101 or Higher Remove Dressing in (days):: 2 Allergies/Adverse Reactions: Allergies hydrocodone [From Vicodin] Allergy (Verified 06/15/20 12:18) Hives Penicillins Allergy (Verified 06/15/20 12:18) Hives Medications to take at Discharge Atorvastatin Calcium 10 mg PO DAILY 12/29/19 lisinopril 5 mg tablet 5 mg PO DAILY tablet 05/25/20 Oxycodone HCl/Acetaminophen [Percocet 5/325] 1 - 2 tablet PO Q6H PRN PRN 3 Days #10 tablet 06/15/20 The following prescriptions were given: Oxycodone HCl/Acetaminophen [Percocet 5/325] 1 - 2 tablet PO Q6H PRN PRN 3 Days #10 tablet PRN Reason: Pain Transmission Status: Sent to [facility] Primary Care Physician: Cortez Walters MD [Primary Care Provider] - Test Results: Test results from this visit will be discussed in further detail at your follow- up appointment, if applicable. Please Follow Up With: Evette Burt MD - After 5 PM and on weekends call [phone] and concerns When: Call the office for a follow appointment in 2 weeks. Proposed Discharge Date: 06/15/20
[2020-06-15 14:24] VITALS: BP 116/65; PULSE 95; RESP 18; TEMP 36.9; O2SAT 100
[2020-06-15 14:25] VITALS: BP 116/65; PULSE 97; RESP 18; O2SAT 99
[2020-06-15 14:30] VITALS: BP 126/73; PULSE 91; RESP 18; O2SAT 99
[2020-06-15 14:35] VITALS: BP 126/82; PULSE 94; RESP 18; TEMP 36.8; O2SAT 98
[2020-06-15 15:30] VITALS: BP 126/82; BP 136/76; PULSE 86; RESP 16; TEMP 37.1; O2SAT 97
== END 2020-06-15 15:35 | disposition home or self-care (01) ==
LOC: SDC 12:03 → AC 12:04
PROVIDERS: PCP Family Medicine; Referring Provider Surgery; Visit Provider Surgery
PROC: (CPT 21931; principal; 2020-06-15 13:15)
DX: D17.1 Benign lipomatous neoplasm of skin and subcutaneous tissue of trunk (principal); I10 Essential (primary) hypertension; E78.5 Hyperlipidemia, unspecified; F17.200 Nicotine dependence, unspecified, uncomplicated; Z79.899 Other long term (current) drug therapy; Z20.822 Contact with and (suspected) exposure to COVID-19
CPT/HCPCS: 00300; 21931; 87426; 88304; C9803; J7120; J2405

== ENCOUNTER → 2020-06-29 09:41 | Outpatient (CLI) | payer OTHER, SELFPAY ==
[2020-06-15 12:20] VITALS: BMI 39.7
[2020-06-29 12:46] LABS: Vitamin D,25 Hydroxy 18.8 ng/mL
[2020-06-29 12:49] LABS: ALB/GLOB Ratio 0.9 RATIO (0.9-2.4); AST(SGOT) 20 U/L (15-37); Alanine Aminotransfer ALT/SGPT 34 U/L (13-56); Albumin, Serum 3.5 g/dL (3.2-5.0); Alkaline Phosphatase 88 U/L (45-117); Anion Gap 6 (5-15); BUN 10 mg/dL (7-18); BUN/Creat Ratio 12.5 RATIO (10-20); Calcium,Total 8.6 mg/dL (8.5-10.1); Chloride 107 mmol/L (98-107); Cholesterol 152 mg/dL (200); EST Glomerular Filtration Rate 79 mL/min (>60); Est Glom Filt Rate - Afr Amer 95 mL/min (>60); Globulin 3.7 g/dL (2.2-4.2); Glucose 162 mg/dL (74-106); High Density Lipoprotein 29 mg/dL; Potassium 3.7 mmol/L (3.5-5.1); Protein, Total 7.2 g/dL (6.4-8.2); Sodium Level 139 mmol/L (136-145); Triglycerides 202 mg/dL; Very Low Density Lipoprotein 40 mg/dL (5-40)
== END ==
LOC: MFPLAB 09:44
PROVIDERS: PCP Family Medicine; Referring Provider Family Medicine; Visit Provider Family Medicine
DX: N18.2 Chronic kidney disease, stage 2 (mild) (principal); E78.5 Hyperlipidemia, unspecified
CPT/HCPCS: 36415; 80053; 80061; 82306

== ENCOUNTER → 2020-09-24 15:32 | Outpatient (CLI) | payer OTHER, SELFPAY ==
[2020-09-24 17:57] LABS: Absolute Lymphocyte Count 1.78 X10^3/uL (0.83-4.51); Absolute Neutrophil Count 5.3 X10^3/uL (2.0-7.7); Basophil# 0.04 X10^3/uL; Basophil% 0.5 % (0-1); Eosinophil# 0.21 X10^3/uL; Eosinophils% 2.7 % (0-5); Hematocrit 39.4 % (37-47); Hemoglobin 13.2 g/dL (12.0-15.0); Lymphocyte # 1.78 X10^3/ul (0.83-4.51); Lymphocyte % 22.7 % (19-41); Mean Corp Hgb Conc 33.5 g/dL (32-36); Mean Corpuscular Hgb 29.5 pg (27.0-32.0); Mean Corpuscular Volume 88.1 fL (81-99); Mean Platelet Vol. 11.9 fl (6.2-12.0); Monocyte# 0.43 X10^3/uL; Monocyte% 5.5 % (0-10); NRBC Flagged by Analyzer 0 % (0-5); Neutrophil # 5.33 X10^3/uL (2.7-7.7); Neutrophil % 68.1 % (47-70); Platelet Count 208 K/mm3 (150-450); RBC Distribution Width CV 12.4 % (11.6-14.6); RBC Distribution Width SD 39.7 fl (35.1-43.9); Red Blood Count 4.47 M/mm3 (4.2-5.4); White Blood Count 7.8 K/mm3 (4.4-11.0)
[2020-09-24 18:12] LABS: ALB/GLOB Ratio 0.9 RATIO (0.9-2.4); AST(SGOT) 37 U/L (15-37); Alanine Aminotransfer ALT/SGPT 43 U/L (13-56); Albumin, Serum 3.5 g/dL (3.2-5.0); Alkaline Phosphatase 80 U/L (45-117); Anion Gap 6 (5-15); BUN 8 mg/dL (7-18); BUN/Creat Ratio 9.9 RATIO (10-20); Calcium,Total 8.4 mg/dL (8.5-10.1); Chloride 105 mmol/L (98-107); Cholesterol 151 mg/dL (200); Creatinine, Serum 0.81 mg/dL (0.55-1.02); EST Glomerular Filtration Rate 77 mL/min (>60); Est Glom Filt Rate - Afr Amer 94 mL/min (>60); Globulin 3.9 g/dL (2.2-4.2); Glucose 140 mg/dL (74-106); High Density Lipoprotein 27 mg/dL; Potassium 4.1 mmol/L (3.5-5.1); Protein, Total 7.4 g/dL (6.4-8.2); Sodium Level 138 mmol/L (136-145); Thyroid Stim Hormone (TSH) 1.85 uIU/mL (0.358-3.74); Triglycerides 291 mg/dL; Very Low Density Lipoprotein 58 mg/dL (5-40)
== END ==
PROVIDERS: PCP Family Medicine; Visit Provider Family Medicine
DX: I10 Essential (primary) hypertension (principal); R53.83 Other fatigue
CPT/HCPCS: 36415; 80053; 80061; 84443; 85025

== ENCOUNTER → 2020-10-11 11:35 | Outpatient (CLI) | payer OTHER, SELFPAY ==
--- NOTE | 2020-10-11 11:38 | CT_ITS ---
STUDY: CT ABDOMEN AND PELVIS WITHOUT CONTRAST REASON FOR EXAM: Female, 54 years old. 2 week history of right flank pain. History of kidney stones. RADIATION DOSAGE (If Supplied By Facility): CTDIvol = ( 20.19 ) mGy, DLP = ( 1482.89 ) mGycm TECHNIQUE: Transaxial images were obtained from the dome of the diaphragm to the symphysis pubis without oral contrast, and without intravenous contrast. Sagittal and coronal images were reconstructed. Individualized dose optimization techniques were used for this CT. COMPARISON: Comparison is made with prior examination 12/29/2019. FINDINGS: The visualized lung bases are unremarkable. Coronary artery calcification. There is decreased attenuation of the liver consistent with steatosis. There are surgical clips in the gallbladder fossa consistent with a prior cholecystectomy. Normal spleen. Normal pancreas. Normal bilateral adrenal glands. Normal right kidney. Normal left kidney. Normal visualized stomach. Normal small intestine. Normal colon. The appendix is visualized and appears normal. There is scattered atherosclerotic calcification of the abdominal aorta, without a demonstrated aneurysm. Normal inferior vena cava. Normal retroperitoneum. Normal urinary bladder. Normal abdominal wall. There are mild degenerative changes of the visualized lumbar spine. Stable 6.7 mm focal sclerosis along the anterior superior endplate of the L5 vertebrae. CT/Abdomen/Pelvis without Cont IMPRESSION: Fatty infiltration of the liver. No acute abnormality is seen. Electronically Signed: Galen Kelly MD at 12:10 EDT , Service support ,
== END ==
PROVIDERS: PCP Family Medicine; Referring Provider Family Medicine; Visit Provider Family Medicine
DX: R10.9 Unspecified abdominal pain (principal)
CPT/HCPCS: 74176

== ENCOUNTER → 2020-10-25 15:31 | Outpatient (CLI) | payer OTHER, SELFPAY ==
[2020-10-25 15:33] LABS: Mucous, Urine 0 SEEN /hpf (<or=2+)
[2020-10-25 17:43] LABS: Color, Urine Yellow (Yellow); Glucose, Dipstick 50 mg/dl (Normal); Ketone-Dipstick 5 mg/dl (Negative); Leukocyte Esterase-Dipstick 25 /ul (Negative); Nitrite-Dipstick Positive (Negative); Occult Blood-Urine 10 /ul (Negative); Protein-Dipstick 15 mg/dl (Negative); Urine Bilirubin Dipstick Negative (Negative); Urine Clarity Cloudy (Clear); Urine Urobilinogen Normal (Normal)
[2020-10-25 18:35] LABS: Bacteria 3+ /hpf (None Seen); Red Blood Cells-Urine 0-5 SEEN /hpf (0-5); Squamous Epithelial Cells - UA 0-5 SEEN /hpf (5-10); White Blood Cells 0-5 SEEN /hpf (0-5)
== END ==
PROVIDERS: PCP Family Medicine; Visit Provider Family Medicine
DX: R31.9 Hematuria, unspecified (principal)
CPT/HCPCS: 81001; 87077; 87086; 87088; 87186

== ENCOUNTER 2021-04-30 12:15 | Outpatient (CLI) | payer OTHER, SELFPAY ==
[2021-04-30 15:48] LABS: Hemoglobin A1c 6.4 % (3.8-5.6)
[2021-04-30 16:15] LABS: ALB/GLOB Ratio 0.9 RATIO (0.9-2.4); AST(SGOT) 19 U/L (15-37); Alanine Aminotransfer ALT/SGPT 29 U/L (13-56); Albumin, Serum 3.4 g/dL (3.2-5.0); Alkaline Phosphatase 84 U/L (45-117); Anion Gap 5 (5-15); BUN 12 mg/dL (7-18); BUN/Creat Ratio 15.7 RATIO (10-20); Calcium,Total 8.8 mg/dL (8.5-10.1); Chloride 106 mmol/L (98-107); Cholesterol 145 mg/dL (200); Creatinine, Serum 0.76 mg/dL (0.55-1.02); EST Glomerular Filtration Rate 83 mL/min (>60); Est Glom Filt Rate - Afr Amer 100 mL/min (>60); Globulin 3.8 g/dL (2.2-4.2); Glucose 135 mg/dL (74-106); High Density Lipoprotein 29 mg/dL; Potassium 4.4 mmol/L (3.5-5.1); Protein, Total 7.2 g/dL (6.4-8.2); Sodium Level 138 mmol/L (136-145); Triglycerides 174 mg/dL; Very Low Density Lipoprotein 35 mg/dL (5-40)
== END 2021-04-30 23:59 | disposition home or self-care (01) ==
LOC: MFPLAB 12:18
PROVIDERS: PCP Registered Nurse; Referring Provider Registered Nurse; Visit Provider Registered Nurse
DX: I10 Essential (primary) hypertension (principal); E78.5 Hyperlipidemia, unspecified
CPT/HCPCS: 36415; 80053; 80061; 83036